=== PATIENT | male | born 1970 | race Caucasian/White ===

== ENCOUNTER 2018-08-24 21:42 | Observation (INO) | payer BC ==
[2018-08-24] MEDS ORDERED: ASPIRIN 81 MG CHEWABLE TABLET PO ONE (21:52)
--- NOTE | 2018-08-24 21:59 | Emergency Department Record ---
History of Present Illness - General Chief complaint: Pain Stated complaint: LT SHOULDER/ARM PIT PAIN Time Seen by Provider: 08/24/18 21:52 Source: Patient, Family Mode of Arrival: Ambulatory Limitations: No limitations - History of Present Illness Initial comments: 47 yo male presents with a pain in the left shoulder that radiated in the chest. The onset was about 9pm. No injuries or pain with movement. The pain tonight lasted 10-15 minutes. The discomfort is completely resolved. He was awoken with similar pain last night at 3am. The pain lasted 5-10 minutes. It is not reproducible. No shortness of breath, sweating, or nausea. No exertion related symptoms. No calf pain or swelling. No pain with inspiration. No pain with movement. No history or CAD. He has elevated cholesterol and he is a smoker. PCP is Radames MARRERO Complaint: Other (Shoulder pain into the chest) Onset/Timin -: Minutes(s) Location: Left, Shoulder History of Same: Yes Radiation: Distal Severity scale (1-10): 1 Quality: Aching Consistency: Intermittent, Now resolved Improves with: Nothing Worsens with: Other Associated Symptoms: Denies other symptoms - Related Data Home Medications Medication Instructions Recorded Confirmed Last Taken Fenofibric Acid (Choline) 135 mg PO DAILY 08/24/18 08/24/18 Unknown [Fenofibric Acid] Simvastatin 20 mg PO DAILY 08/24/18 08/24/18 Unknown Allergies Allergy/AdvReac Type Severity Reaction Status Date / Time Sulfa (Sulfonamide Allergy PT UNSURE Verified 08/24/18 21:55 Antibiotics) OF REACTION Travel Screening - Travel/Exposure Within Last 30 Days Have you traveled within the last 30 days?: No - Travel Symptoms Symptom Screening: None Review of Systems Constitutional: Denies: Chills, Fever, Malaise, Weakness Eyes: Denies: Eye discharge ENT: Denies: Congestion, Throat pain Respiratory: Denies: Cough, Dyspnea, Hemoptysis, Wheezes Cardiovascular: Reports: Chest pain. Denies: Arrhythmia, Dyspnea on exertion, Edema, Orthopnea, Palpitations, Syncope Endocrine: Denies: Fatigue Gastrointestinal: Denies: Abdominal pain, Constipation, Diarrhea, Nausea, Vomiting Genitourinary: Denies: Dysuria, Frequency, Hematuria Musculoskeletal: Reports: Arthralgia. Denies: Back pain, Joint swelling, Myalgia, Neck pain Skin: Denies: Bruising, Change in color Neurological: Denies: Headache, Numbness, Vertigo, Weakness Psychiatric: Denies: Anxiety Hematological/Lymphatic: Denies: Easy bleeding, Easy bruising Physical Exam - General General Appearance: Alert, Oriented x3, Cooperative, No acute distress Limitations: No limitations - Head Head exam: Atraumatic, Normal inspection - Eye Eye exam: Normal appearance. negative: Conjunctival injection, Scleral icterus - ENT ENT exam: Normal exam Ear exam: Normal external inspection Nasal Exam: Normal inspection Mouth exam: Normal external inspection - Neck Neck exam: Normal inspection - Respiratory Respiratory exam: Normal lung sounds bilaterally. negative: Chest wall tenderness, Decreased breath sounds, Respiratory distress, Rhonchi, Stridor, Wheezes - Cardiovascular Cardiovascular Exam: Regular rate, Normal rhythm, Normal heart sounds Peripheral Pulses: 2+: Radial (R), Radial (L) - GI/Abdominal GI/Abdominal exam: Soft. negative: Tenderness - Rectal Rectal exam: Deferred - exam: Deferred - Extremities Extremities exam: Normal inspection. negative: Tenderness - Back Back exam: Reports: Normal inspection. Denies: CVA tenderness (R), CVA tenderness (L) - Neurological Neurological exam: Alert, Oriented X3 - Psychiatric Psychiatric exam: Normal affect, Normal mood - Skin Skin exam: Dry, Intact, Normal color, Warm Course Vital Signs 08/24/18 21:50 Temperature 98.1 F Pulse Rate [ 73 Pulse Ox Probe] Respiratory 20 Rate Blood Pressure 196/121 [Right Arm] Pulse Ox 98 - Reevaluation(s) Reevaluation #1: 08/24/18 21:57 EKG 21:55 Rate 65 Rhythm sinus Viola left Interval normal ST NS changes with left axis flat T waves, no ST depression 08/24/18 22:20 No acute changes on the CBC The glucose is 163 on the CMP 08/24/18 22:21 The CXR was reviewed by me. No acute changes on the prelim. 08/24/18 22:25 The Troponin is negative The patient remains pain free I discussed the non specific changes of left axis and non specific ST changes with risk factors of elevated cholesterol and smoking. No family history. I recommend admission with serial enzymes and consultation with cardiology. 08/24/18 22:42 The patient prefers [facility] for any additional testing [facility] was contacted for cardiology Repeat BP 175/99 08/24/18 22:58 I FREDDY Perez of Cardiology. He states the cardiology service is close to transfers as his is over capacity. Additionally there are no step down beds at [facility] currently. The only option is a observation bed but this is only available to [facility] which [facility] is not one. The patient was informed of the situation. He agrees with admission to [facility] for serial enzymes and cardiology consultation at [facility]. ECHO will be ordered in the AM as well. Medical Decision Making - Lab Data Result diagrams: 08/24/18 22:00 08/24/18 22:00 Disposition Disposition: Admit Clinical Impression: Shoulder pain, acute Qualifiers: Laterality: unspecified laterality Qualified Code(s): M25.519 - Pain in unspecified shoulder Chest pain Qualifiers: Chest pain type: unspecified Qualified Code(s): R07.9 - Chest pain, unspecified Disposition: Still a Patient at [facility] Decision to Admit: Admit from ER Decision to Admit Date: 08/24/18 Decision to Admit Time: 23:01 Condition: (2) Stable Time of Disposition: 22:43 Quality - Quality Measures Quality Measures: N/A - Blood Pressure Screening Does Patient Have Any of the Following: No Blood Pressure Classification: Hypertensive Reading Systolic Measurement: 159 Diastolic Measurement: 101 Screening for High Blood Pressure: < Pre-Hypertensive BP, F/U Documented > [ G8950] Pre-Hypertensive Follow-up Interventions: Referral to alternative/primary care provider.
[2018-08-24 22:06] LABS: BASO % 0.7 % (0-6); EOS % 5.8 % (0-6); GRAN % 52.5 % (47-80); HEMATOCRIT 47.2 % (42.0-52.0); HEMOGLOBIN 16.1 gm/dl (14.0-18.0); MEAN CELL VOLUME 91.3 fl (81-97); MEAN CORPUSCULAR HEMOGLOBIN 31.1 pg (27-33); MEAN CORPUSCULAR HGB CONC 34.1 g/dl (32-36); MEAN PLATELET VOLUME 11.2 fl (7.4-10.4); PLATELET COUNT 198 K/uL (130-400); RED BLOOD COUNT 5.17 M/uL (4.40-5.70); RED CELL DISTRIBUTION WIDTH 12.9 % (11.5-14.5); WHITE BLOOD COUNT W/O DIFF 8.7 K/uL (4.2-12.2)
[2018-08-24 22:15] LABS: BLOOD UREA NITROGEN 16 mg/dL (6-20); EST GLOMERULAR FILTRATION RATE > 60 mL/min
[2018-08-24 22:18] LABS: GLUCOSE,RANDOM 163 mg/dL (74-109)
[2018-08-25] MEDS ORDERED: NITROGLYCERIN 0.4MG SL TABLET #25 BTL SL PRN (00:25)
--- NOTE | 2018-08-25 07:23 | History & Physical ---
History of Present Illness - Date of Service Date of Service for History & Physical: 08/25/18 - History of Present Illness Admitting Diagnosis: chest pain History of Present Illness: Mr. Amador is a 47 yo male who presented to the ED on 08/24/18 with a pain in the left shoulder that radiated in the chest. The onset was about 9pm. No injuries or pain with movement. The pain lasted 10-15 minutes. The discomfort is completely resolved. He was awoken with similar pain the previous night at 3am. The pain lasted 5-10 minutes. It is not reproducible. No shortness of breath, sweating, or nausea. No exertion related symptoms. No calf pain or swelling. No pain with inspiration. No pain with movement. No history or CAD. He has elevated cholesterol and he is a smoker. In the ED, his BP was 196/121, HR 73, RR20, T 98.1F, and 98% on room air. His EKG showed sinus rhythm, non-specific ST changes with left axis, flat T waves, no ST depression. No acute changes on CBC or CMP, initial troponin was negative. No acute changes on chest xray. Pt .was admitted for observation- plan serial enzymes, repeat EKG, echo, cardio consult. Pt. stated that he preferred [facility] for additional testing, Dr. Rojas spoke with Dr. Perez of Cardiology and they were closed to transfers at that time due to capacity- pt agreed to admission at [facility]. 08/25/18 0630: Pt. is resting in bed, he states that he has not experienced any chest pain since his admission. Troponin this morning was elevated at 0.102- SW Dr. Perez this morning- no beds available at this time. Spoke with Dr. Ruffin for [facility] and he advised to contact internal med service- Delmar Lares spoke with Dr. Giles and she will accept pt. for transfer. Stat PT/INR ordered and heparin bolus of 5,500 units administered, will initiate heparin drip. Echo is being performed at this time. PCP: mason Crum Travel Screening - Travel/Exposure Within Last 30 Days Have you traveled within the last 30 days?: No - Travel/Exposure Within Last Year Have you traveled outside the [place] in the last year?: Yes Location Detail:: 01/22 [place] - Additonal Travel Details Have you been exposed to anyone with a communicable illness?: No - Travel Symptoms Symptom Screening: None Review of Systems Constitutional: Denies: Chills, Fever, Malaise, Weakness Eyes: Denies: Eye discharge ENT: Denies: Congestion, Throat pain Respiratory: Denies: Cough, Dyspnea, Hemoptysis, Wheezes Cardiovascular: Reports: Chest pain. Denies: Arrhythmia, Dyspnea on exertion, Edema, Orthopnea, Palpitations, Syncope Endocrine: Denies: Fatigue Gastrointestinal: Denies: Abdominal pain, Constipation, Diarrhea, Nausea, Vomiting Genitourinary: Denies: Dysuria, Frequency, Hematuria Musculoskeletal: Reports: Arthralgia. Denies: Back pain, Joint swelling, Myalgia, Neck pain Skin: Denies: Bruising, Change in color Neurological: Denies: Headache, Numbness, Vertigo, Weakness Psychiatric: Denies: Anxiety Hematological/Lymphatic: Denies: Easy bleeding, Easy bruising Past Medical History - SOCIAL HISTORY Smoking Status: Former smoker Alcohol Use: Occasional Drug Use: None - RESPIRATORY Hx Respiratory Disorders: No - CARDIOVASCULAR Hx Cardio Disorders: Yes Comment:: HLD - NEURO Hx Neuro Disorders: No - GI Hx GI Disorders: No - Hx Genitourinary Disorders: No - ENDOCRINE Hx Endocrine Disorders: No - MUSCULOSKELETAL Hx Musculoskeletal Disorders: No - PSYCH Hx Psych Problems: No - HEMATOLOGY/ONCOLOGY Hx Hematology/Oncology Disorders: No Family Medical History Any Significant Family History?: Yes Hx Alcohol Use: Father Hx Dementia: Grandparents Hx Diabetes: Grandparents *Diabetes Comment: MGF Hx Heart Disease: Grandparents *Heart Comment: MGF Hx HTN: Mother H&P Meds/Allergies - Allergies Allergies: Allergies Allergy/AdvReac Type Severity Reaction Status Date / Time Sulfa (Sulfonamide Allergy PT UNSURE Verified 08/24/18 21:55 Antibiotics) OF REACTION - Home Medications Home Medications Medication Instructions Recorded Confirmed Last Taken Fenofibric Acid (Choline) 135 mg PO DAILY 08/24/18 08/24/18 Unknown [Fenofibric Acid] Simvastatin 20 mg PO DAILY 08/24/18 08/24/18 Unknown - Active Medications Active Medications: Current Medications Aspirin (Ecotrin (Ec)) 325 mg PO DAILY ED Nitroglycerin (Nitrostat 0.4mg) 0.4 mg SL Q5MIN PRN PRN Reason: CHEST PAIN Physical Exam - Vital Signs Vital Signs: Vital Signs - Last 24 Hrs Temp Pulse Pulse Resp BP Pulse Ox 08/24/18 23:33 58 L 16 159/101 97 08/24/18 22:42 60 20 175/99 97 08/24/18 21:50 98.1 F 73 20 196/121 98 - General General Appearance: Alert, Oriented x3, Cooperative, No acute distress Limitations: No limitations - Head Head exam: Atraumatic, Normal inspection - Eye Eye exam: Normal appearance. negative: Conjunctival injection, Scleral icterus - ENT ENT exam: Normal exam Ear exam: Normal external inspection Nasal Exam: Normal inspection Mouth exam: Normal external inspection - Neck Neck exam: Normal inspection - Respiratory Respiratory exam: Normal lung sounds bilaterally. negative: Chest wall tenderness, Decreased breath sounds, Respiratory distress, Rhonchi, Stridor, Wheezes - Cardiovascular Cardiovascular Exam: Regular rate, Normal rhythm, Normal heart sounds Peripheral Pulses: 2+: Radial (R), Radial (L) - GI/Abdominal GI/Abdominal exam: Soft. negative: Tenderness - Rectal Rectal exam: Deferred - exam: Deferred - Extremities Extremities exam: Normal inspection. negative: Tenderness - Back Back exam: Reports: Normal inspection. Denies: CVA tenderness (R), CVA tenderness (L) - Neurological Neurological exam: Alert, Oriented X3 - Psychiatric Psychiatric exam: Normal affect, Normal mood - Skin Skin exam: Dry, Intact, Normal color, Warm Results - Labs Result Diagrams: 08/24/18 22:00 08/24/18 22:00 Labs Last 24 Hours: Laboratory Results - last 24 hr 08/24/18 08/24/18 08/25/18 22:00 22:00 06:15 WBC 8.7 RBC 5.17 Hgb 16.1 Hct 47.2 MCV 91.3 MCH 31.1 MCHC 34.1 RDW 12.9 Plt Count 198 MPV 11.2 H Gran % 52.5 Lymphocytes % 29.0 Monocytes % 12.0 H Eosinophils % 5.8 Basophils % 0.7 Sodium 140 Potassium 3.8 Chloride 101 Carbon Dioxide 26.0 Anion Gap 13.0 BUN 16 Creatinine 1.0 Estimated GFR > 60 Random Glucose 163 H Calcium 9.6 Troponin T < 0.010 0.102 H* VTE H&P Assessment - Risk for VTE Risk for VTE: Yes Risk Level: Moderate Risk Assessment Date: 08/25/18 Risk Assessment Time: 07:24 VTE Orders Placed or Will Be Placed: Yes Plan - Detailed Diagnosis and Plan (1) Chest pain Current Visit: Yes Status: Acute Qualifiers: Chest pain type: unspecified Qualified Code(s): R07.9 - Chest pain, unspecified Base Code: R07.9 - CHEST PAIN, UNSPECIFIED Comment: 08/25/18: -EKG showed sinus rhythm, non-specific ST changes with left axis, flat T waves, no ST depression. -No acute changes on CBC or CMP, initial troponin was negative. -No acute changes on chest xray. -plan serial enzymes, repeat EKG, echo, cardio consult. (2) At risk for deep venous thrombosis Current Visit: Yes Status: Acute Base Code: Z91.89 - OTH PERSONAL RISK FACTORS, NOT ELSEWHERE CLASSIFIED Comment: 08/25/18: -Initiating heparin for elevated troponin this am- 5,000 bolus (3) Full code status Current Visit: Yes Status: Acute Base Code: Z78.9 - OTHER SPECIFIED HEALTH STATUS Comment: 08/25/18: -Pt. is a full code
[2018-08-25] MEDS ORDERED: HEPARIN SODIUM 1000 UNIT/1 ML 10ML VIAL IVP ONE (07:30)
--- NOTE | 2018-08-25 07:44 | RADIOLOGY REPORT ---
EXAM: CHEST, TWO VIEWS HISTORY: PATIENT HAS LEFT SHOULDER PAIN. TECHNIQUE: Two views of the chest are provided without comparison examinations. FINDINGS: The cardiomediastinal silhouette is within normal limits for size and contour. Tortuosity of the thoracic aorta is noted. The dolores appear unremarkable. There is no radiographic evidence of a focal infiltrate or pleural effusion. No pneumothorax is noted. IMPRESSION: NO RADIOGRAPHIC EVIDENCE OF AN ACUTE INTRATHORACIC PROCESS. JOB NUMBER: [id number] MTDD
--- NOTE | 2018-08-25 07:59 | Discharge Summary ---
Providers Discharge Summary Date: 08/25/18 Date of admission: 08/24/18 23:51 Expected Date of Discharge: 08/25/18 Attending physician: BERLIN CARRERO Primary care physician: MAURISIO KENNEY M.D. 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 negative: Conjunctival injection, Scleral icterus - ENT ENT exam: Normal exam Ear exam: Normal external inspection Nasal Exam: Normal inspection Mouth exam: Normal external inspection - Neck Neck exam: Normal inspection - Respiratory Respiratory exam: Normal lung sounds bilaterally. negative: Chest wall tenderness, Decreased breath sounds, Respiratory distress, Rhonchi, Stridor, Wheezes - Cardiovascular Cardiovascular Exam: Regular rate, Normal rhythm, Normal heart sounds Peripheral Pulses: 2+: Radial (R), Radial (L) - GI/Abdominal GI/Abdominal exam: Soft. negative: Tenderness - Rectal Rectal exam: Deferred - exam: Deferred - Extremities Extremities exam: Normal inspection. negative: Tenderness - Back Back exam: Reports: Normal inspection. Denies: CVA tenderness (R), CVA tenderness (L) - Neurological Neurological exam: Alert, Oriented X3 - Psychiatric Psychiatric exam: Normal affect, Normal mood - Skin Skin exam: Dry, Intact, Normal color, Warm Hospitalization - Hospitalization Admission Diagnosis: chest pain - Problem List/Discharge Diagnosis (1) Chest pain Current Visit: Yes Status: Acute Discharge Diagnosis: Chest pain type: unspecified Qualified Code(s): R07.9 - Chest pain, unspecified Base Code: R07.9 - CHEST PAIN, UNSPECIFIED Comment: 08/25/18: -EKG showed sinus rhythm, non-specific ST changes with left axis, flat T waves, no ST depression. -No acute changes on CBC or CMP, initial troponin was negative. -No acute changes on chest xray. -plan serial enzymes, repeat EKG, echo, cardio consult. (2) At risk for deep venous thrombosis Current Visit: Yes Status: Acute Base Code: Z91.89 - OTH PERSONAL RISK FACTORS, NOT ELSEWHERE CLASSIFIED Comment: 08/25/18: -Initiating heparin for elevated troponin this am- 5,000 bolus (3) Full code status Current Visit: Yes Status: Acute Base Code: Z78.9 - OTHER SPECIFIED HEALTH STATUS Comment: 08/25/18: -Pt. is a full code - Hospitalization Course Disposition: Acute Care Hospital Transfer Hospital Course: Mr. Amador is a 47 yo male who presented to the ED on 08/24/18 with a pain in the left shoulder that radiated in the chest. The onset was about 9pm. No injuries or pain with movement. The pain lasted 10-15 minutes. The discomfort is completely resolved. He was awoken with similar pain the previous night at 3am. The pain lasted 5-10 minutes. It is not reproducible. No shortness of breath, sweating, or nausea. No exertion related symptoms. No calf pain or swelling. No pain with inspiration. No pain with movement. No history or CAD. He has elevated cholesterol and he is a smoker. In the ED, his BP was 196/121, HR 73, RR20, T 98.1F, and 98% on room air. His EKG showed sinus rhythm, non-specific ST changes with left axis, flat T waves, no ST depression. No acute changes on CBC or CMP, initial troponin was negative. No acute changes on chest xray. Pt .was admitted for observation- plan serial enzymes, repeat EKG, echo, cardio consult. Pt. stated that he preferred [facility] for additional testing, Dr. Rojas spoke with Dr. Perez of Cardiology and they were closed to transfers at that time due to capacity- pt agreed to admission at [facility]. 08/25/18 0630: Pt. is resting in bed, he states that he has not experienced any chest pain since his admission. Troponin this morning was elevated at 0.102- SW Dr. Perez this morning- no beds available at this time. Spoke with Dr. Ruffin for [facility] and he advised to contact internal med service- DLeon Lares spoke with Dr. Giles and she will accept pt. for transfer. Stat PT/INR ordered and heparin bolus of 5,500 units administered, will initiate heparin drip at 20 units/hr. Echo is being performed at this time. PCP: mason Crum Procedures: Imaging and X-Rays 08/24/18 21:52 CHEST 2 VIEWS [RAD] Stat Cardiology Procedures 08/24/18 21:52 Cover Remover NOW 08/24/18 21:54 EKG NOW 08/25/18 00:25 Cover Remover .Continuous EKG QDX2@0600 Echo W/CF & Cardiac Doppler ONCE Abnormal Labs: Abnormal Lab Results 08/24/18 08/24/18 08/25/18 Range/Units 22:00 22:00 06:15 MPV 11.2 H (7.4-10.4) fl Monocytes % 12.0 H (0-9) % Random Glucose 163 H (74-109) mg/dL Troponin T 0.102 H* (0-0.010) ng/mL Condition at Discharge: (2) Stable Discharge Medications - Discharge Medications Home Medications: Ambulatory Orders Fenofibric Acid (Choline) [Fenofibric Acid] 135 mg PO DAILY 08/24/18 [Last Taken Unknown] Simvastatin 20 mg PO DAILY 08/24/18 [Last Taken Unknown] Discharge Plan - Discharge Instructions Activity at Discharge: Return To Work Once Cleared By Your PCP/Specialist Diet at Discharge: Other (NPO) Quality Measures - Quality Measures Quality Measures: Documentation of Current Medications in Medical Record, Screening for High Blood Pressure and F/U Documented - Current Medications Quality Measure: Measure #130: Documentation of Current Medications Documentation of Current Medications: <Current Medications Documented/Reviewed> [G8427] - Blood Pressure Screening Quality Measure: Screening for High Blood Pressure and Follow-Up Documented Does Patient Have Any of the Following: No Blood Pressure Classification: Hypertensive Reading Systolic Measurement: 159 Diastolic Measurement: 101 Screening for High Blood Pressure: < First Hypertensive BP, F/U Documented > [ G8950] First Hypertensive Follow-up Interventions: Referral to alternative/primary care provider. - Elder Abuse Suspicion Index EASI Reference Information: Papi MORAN, Janel Whaley, Naveen D, Adia Meyer.Development and validation of a tool to assist physicians identification of elder abuse: The Elder Abuse Suspicion Index (EASI ). Journal of Elder Abuse and Neglect, 2008; 20 (3): 276-300.
[2018-08-25] MEDS ORDERED: HEPARIN SODIUM/D5W 25,000 UNITS/500 ML BAG IV SCH (09:15)
[2018-08-25] MEDS ORDERED: ASPIRIN 325 MG TAB ENTERIC-COATED PO SCH (10:00)
== END 2018-08-25 09:55 | disposition short-term general hospital (02) ==
LOC: ER 21:42 → MEDSURG 23:51
PROVIDERS: ADMIT Internal Medicine; ATTEND Internal Medicine
DX: R07.9 Chest pain, unspecified (principal); E78.00 Pure hypercholesterolemia, unspecified; E78.5 Hyperlipidemia, unspecified; F17.210 Nicotine dependence, cigarettes, uncomplicated
CPT/HCPCS: 71046; 80048; 84484; 85025; 85610; 85730; 93005; 93010; 93306; 99220; 99285